=== PATIENT | male | born 1940 | race Caucasian/White ===

== ENCOUNTER 2019-06-11 12:02 | Emergency (ER) | payer MEDICARE ==
[~2019-06-11] VITALS: Ht 176.5 cm; Wt 78.0 kg
[~2019-06-11 12:02] MED LIST: ASPIRINCHW 81MG PO; CHERATUSSIN OR; CIMETIDINE400 MG PO; DIPHENHYDRAM25 M2 OR; LISINOPRIL10 MG OR; LOSARTAN POTAS100 MG PO; MEDDOSEPAK OR; SIMVASTATIN20 MG PO; SOLU-MEDROL125 MG IM; TENORMIN25 MG OR; ZITHROMAX250 MG OR
[2019-06-11] MEDS ORDERED: PANTOPRAZOLE SO40 M1 PO (12:47)
[2019-06-11] MEDS ORDERED: LOSARTAN POTASS50 MG PO (12:47)
[2019-06-11 13:39] VITALS: BP 136/75
== END 2019-06-11 13:56 | disposition home or self-care (01) ==
LOC: ED 12:02
PROC: 2W3QX1Z Immobilization of Right Lower Leg using Splint (ICD-10-PCS; principal; 2019-06-11)
DX: S82.831A Other fracture of upper and lower end of right fibula, initial encounter for closed fracture (principal); V28.4XXA Motorcycle driver injured in noncollision transport accident in traffic accident, initial encounter